=== PATIENT | female | born 1990 | race Caucasian/White ===

== ENCOUNTER 2019-04-05 19:09 | Emergency (ER) | payer BC, OTHER ==
[~2019-04-05] VITALS: Ht 160 cm; Wt 93.0 kg
[2019-04-05] MEDS ORDERED: DEXAMETHASONE SOD PHOS 10 MG/1 ML VIAL ONE (19:24)
[2019-04-05] MEDS ORDERED: DEXAMETHASONE SOD PHOS 10 MG/1 ML VIAL IM ONE (19:30)
== END 2019-04-05 19:49 | disposition home or self-care (01) ==
LOC: FSED 19:09 → ER 19:49
DX: B34.9 Viral infection, unspecified (principal)
CPT/HCPCS: 99282; J1100